=== PATIENT | female | born 1965 | race African-American/Black ===

== ENCOUNTER 2018-01-30 19:27 | Emergency (ER) | payer OTHER ==
[~2018-01-30] VITALS: Ht 162.6 cm; Wt 90.7 kg
[~2018-01-30 19:27] MED LIST: COR3 PO; CYMBALTA30 M1 PO; GEODON60 MG PO; MOM PO; MP PO; PROVENTIL0.09 MG/A1 INH; SIMVASTATIN40 M1 PO; TOPAMAX25 MG PO; TRAMADOL50 M1 PO
[2018-01-30 19:35] VITALS: Ht 162.6 cm; Wt 90.7 kg
[2018-01-30 20:29] LABS: BASOPHIL % 0.8 % (0-2); PLATELET COUNT 262 x10^3mcL (130-400)
[2018-01-30 20:31] LABS: RED CELL DISTRIBUTION WIDTH 15.6 % (11.5-14.5)
[2018-01-30 20:43] LABS: CALCIUM 8.9 mg/dL (8.5-10.1); CHLORIDE SERUM 106 mmol/L (98-107); CREATININE SERUM 0.9 mg/dL (0.6-1.0); GFR1 > 60 mL/min; GLUCOSE SERUM 90 mg/dL (74-106); SODIUM SERUM 143 mmol/L (136-145)
[2018-01-30 20:48] LABS: ALKALINE PHOSPHATASE 51 U/L (46-116); ALT/SGPT 24 U/L (14-59); AST/SGOT 14 U/L (15-37); BILIRUBIN TOTAL 0.1 mg/dL (0.20-1.00); TOTAL PROTEIN, SERUM 6.8 g/dL (6.4-8.2)
[2018-01-30 20:49] LABS: ALBUMIN 3.1 g/dL (3.4-5.0)
[2018-01-31 02:05] VITALS: BP 141/78
== END 2018-01-31 02:05 | disposition home or self-care (01) ==
LOC: ED 19:27
PROVIDERS: Emergency Medicine
DX: R07.89 Other chest pain (principal); R05 Cough; R09.89 Other specified symptoms and signs involving the circulatory and respiratory systems; R11.0 Nausea; J45.909 Unspecified asthma, uncomplicated; Z88.6 Allergy status to analgesic agent; Z88.5 Allergy status to narcotic agent; Z86.73 Personal history of transient ischemic attack (TIA), and cerebral infarction without residual deficits
CPT/HCPCS: 83880; 85378; J2270; J2405; Q0092

== ENCOUNTER 2020-02-02 21:02 | Inpatient (IN) | payer OTHER ==
[~2020-02-02] VITALS: Ht 160 cm; Wt 84.8 kg
[2020-02-02 21:37] VITALS: Ht 160 cm; Wt 84.8 kg
--- NOTE | 2020-02-02 21:50 | NUR ---
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 DENIES SOB/FEVER/OR SICK CONTACT, VSS,NAD, APPPEARS DEPRESSED, DENIES SI/HI/VH/AH AT THIS TIME, PT ON TELE MONITOR, EKG DONE. PT ON TELE MONITOR, PEDING EDMD MSE, CONTINUE TO MONITOR
[2020-02-02 21:52] LABS: BASOPHIL % 1.2 % (0-2); PLATELET COUNT 260 x10^3mcL (130-400)
[2020-02-02 21:53] LABS: RED CELL DISTRIBUTION WIDTH 14.9 % (11.5-14.5)
[2020-02-02 22:03] LABS: CALCIUM 8.8 mg/dL (8.5-10.1); CARBON DIOXIDE 29.9 mmol/L (21-32); CHLORIDE SERUM 103 mmol/L (98-107); CREATININE SERUM 0.9 mg/dL (0.6-1.0); GFR1 > 60 mL/min; GLUCOSE SERUM 104 mg/dL (74-106); POTASSIUM SERUM 4.3 mmol/L (3.5-5.1); SODIUM SERUM 140 mmol/L (136-145)
[2020-02-02 22:08] LABS: ALBUMIN 3.7 g/dL (3.4-5.0); ALKALINE PHOSPHATASE 63 U/L (46-116); ALT/SGPT 33 U/L (14-59); AST/SGOT 20 U/L (15-37); BILIRUBIN TOTAL 0.2 mg/dL (0.20-1.00); TOTAL PROTEIN, SERUM 7.3 g/dL (6.4-8.2)
--- NOTE | 2020-02-02 23:30 | NUR ---
EDUCATE PT ON MED, VERBALIZES UNDERSTANDING, ZOFRAN 4MG AND MORPHINE 2MG IVP GIVEN, PT ON TELE MONITOT
[2020-02-03] VITALS (8 sets, daily range): BP systolic 113–140; BP diastolic 52–78
--- NOTE | 2020-02-03 | NUR ---
PT AMBULATES WITH STEADY GAIT TO AND FROM BATHROOM. NAD. DENIES SOB/CP AT THIS TIME
--- NOTE | 2020-02-03 01:27 | NUR ---
REPORT CALLED TO LEROY PETERSON TO ASSUME PRIMARY CARE OF RN.
--- NOTE | 2020-02-03 02:36 | NUR ---
PATIENT RECEIVED FROM ED VIA GURNEY TO ROOM 242B, PATIENT A&OX4, C/O HEADACHE AND PAIN IN THE NECK 11/14, OFFERED NORCO HOWEVER PATIENT SAID SHE IS ALLERGIC TO TYLENOL AND NSAIDS. ASK PATIENT WHAT MEDICATION WORKS FOR HER, HESITANT TO SAY, ASKS IF MORPHINE WORKS SHE HAD ONE IN ED AND SHE SAID YES. LEFT NOTE TO PROCESS VALIDATION ENGINEER MD FOR PAIN MEDICATION REQUEST. PATIENT AMBULATORY, ON TELE MONITOR # 36 SR WITH BBB AT 80. SKIN INTACT. SAFETY PRECAUTION EXPLAINED TO PATIENT. BED ALARM TURNED ON AND PATIENT REMINDED TO CALL PRIOR TO GETTING OUT OF BED. PATIENT VERBALIZED UNDERSTANDING. ASKED PATIENT WHY SHE IS IN [facility] PATIENT SAID "DEPRESSION". PATIENT ANSWERED QUESTIONS APPRORIATELY .NOTICE PATIENT DOING THE "HANDWASHING ACT" ON HER BEDSHEET THEN STOPS WHEN NURSE ENTERS ROOM. LEFT PATIENT IN BED, BED IN LOW POSITION, BED ALARM ON. REMINDED TO CALL BEFORE GETTING OUT OF BED.
[2020-02-03 07:19] LABS: BASOPHIL % 1.2 % (0-2); PLATELET COUNT 222 x10^3mcL (130-400)
[2020-02-03 07:22] LABS: RED CELL DISTRIBUTION WIDTH 15.2 % (11.5-14.5)
[2020-02-03 07:43] LABS: CALCIUM 9.3 mg/dL (8.5-10.1); CARBON DIOXIDE 28.5 mmol/L (21-32); CHLORIDE SERUM 105 mmol/L (98-107); CREATININE SERUM 0.9 mg/dL (0.6-1.0); GFR1 > 60 mL/min; GLUCOSE SERUM 94 mg/dL (74-106); POTASSIUM SERUM 4.1 mmol/L (3.5-5.1); SODIUM SERUM 142 mmol/L (136-145)
--- NOTE | 2020-02-03 12:53 | NUR ---
PT SITTING UP IN BED AND EATING, STATED THAT SHE STILL HAS A HEADACHE, BUT DID NOT WANT ANY MEDICATIONS AT THIS TIME. NO ACUTE DISTRESS OR CP AND PRESSURE NOTED. WILL CONT TO MONITOR. CALL LIGHT WITHIN REACH. BED IN LOWEST POSTIION.
--- NOTE | 2020-02-03 15:10 | NUR ---
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 EVEN AFTER REINFORCING THE IMPORTANCE, PT STATED "I DON'T NEED IT". WILL CONT TO MONITOR.
--- NOTE | 2020-02-03 15:11 | NUR ---
PATIENT REFUSED ECHOCARDIOGRAM-STATES SHE DOES NOT NEED IT
--- NOTE | 2020-02-03 15:21 | NUR ---
DR. GARCIA AT BEDSIDE PERFORMING INITIAL ASSESSMENT, PT INITIALLY ANSWERED QUESTIONS SUCH TAKING LATUDA AT [facility] AND NOT BEEN HAVING SI LATELY, BUT FURTHER ON REFUSED TO ANSWER DR'S QUESTIONS. PT STATED "I FEEL LIKE IT'S TOO INVASIVE". WILL CONT TO MONITOR PT AND FOLLOW UP WITH DR IF NEEDED.
--- NOTE | 2020-02-03 15:37 | NUR ---
WENT IN THE PTS ROOM AND STATED SHE WANTED TO LEAVE AMA, SPOKE WITH DR. HARLEY ON THE TELEPHONE, STATED THAT HE WILL SEE THE PT.
--- NOTE | 2020-02-03 15:45 | NUR ---
DR. HARLEY AT BEDSIDE, EXPLAINED THE REPERCUSSIONS OF LEAVING AMA. PT STILL INSISTED THAT SHE WOULD LIKE TO LEAVE AMA. PT SIGNED AMA FORM.
--- NOTE | 2020-02-03 18:29 | NUR ---
PT CURRENTLY SITTING UP AND EATING DINNER. AAOX4, PT APPEARED TENSE AND UPSET INTERMITTENTLY THROUGHOUT SHIFT. ON TELE 36, SR WITH BBB. NO CP AND PRESSURE NOTED AT THIS TIME. PULSES +, - EDEMA. ON RA, DENIES SOB. NO ABD PAIN/N/V AT THIS TIME. PT VOIDS FREELY. AMBULATORY WITH STEADY GAIT. SKIN INTACT. SALINE LOCKED 22G LH, PATENT AND FLUSHING. DENIES PAIN AT THIS TIME. WILL ENDORSE TO BURLING AND JOINING SUPERVISOR RN.
--- NOTE | 2020-02-03 19:34 | NUR ---
Receieve pt. from day shift for continuity of care at this time. Pt. is a/o x4, able to make needs known, follow simple commands, no c/o h/a. Pt. is breathing e/u on RA, no acute distress or SOB. Pt. reported to be NSR w/ BBB, trop negative x3, pt has no c/o pain or c/p at this time, will cont. to monitor. Pt. IV site patent and dressing in tact, no s/o infiltration or infection. Pt. noted to have refused eecho today, will try again in the AM, pt. is BRP, pt. came from [facility], noted to be tense and anxious, signed AMA during day shift, but willing to stay at this time since transportation can not be arranged. Otherwise, pt. stable, bed set at lowest position, call light placed within reach, will cont. to monitor.
--- NOTE | 2020-02-03 21:49 | NUR ---
Spoke to pt. at this time, pt. denies any hx of HIV or TB. States she got tested at [facility], and it was negative. Will cont. to monitor.
--- NOTE | 2020-02-03 21:59 | NUR ---
f/u w/ pt. regarding reported hx. of TB and HIV, as per pt. no hx of TB, and has been tested at [facility] for HIV, will cont. to monitor.
--- NOTE | 2020-02-03 23:28 | NUR ---
pt. resting in bed, watching tv throughout shift, all needs anticipated and met. All questions and concerns answered, otherwise, pt. stable, will cont. to monitor.
--- NOTE | 2020-02-04 00:46 | NUR ---
Pt. c/o of severe 9/10 h/a and neck pain and feeling nauseated. Offered some sprite, but pt. requesting zofran at this time. Medicated w/ zofran and morphine at this time, will cont. to monitor.
[2020-02-04 05:49] VITALS: BP 118/60
--- NOTE | 2020-02-04 06:19 | NUR ---
Pt. resting thorughout shift, no acute distress or c/o pain s/p pain medication administered. Otherwise, pt. stable, will cont. to monitor and endorse care to next shift RN.
[2020-02-04 07:26] LABS: CALCIUM 9.2 mg/dL (8.5-10.1); CARBON DIOXIDE 26.5 mmol/L (21-32); CHLORIDE SERUM 105 mmol/L (98-107); CREATININE SERUM 0.9 mg/dL (0.6-1.0); GFR1 > 60 mL/min; GLUCOSE SERUM 97 mg/dL (74-106); POTASSIUM SERUM 4.2 mmol/L (3.5-5.1); SODIUM SERUM 140 mmol/L (136-145)
[2020-02-04 07:57] LABS: BASOPHIL % 1.4 % (0-2); PLATELET COUNT 223 x10^3mcL (130-400)
[2020-02-04 08:00] LABS: RED CELL DISTRIBUTION WIDTH 14.7 % (11.5-14.5)
[2020-02-04 08:25] VITALS: BP 128/69
--- NOTE | 2020-02-04 10:31 | NUR ---
RECIEVED PT IN A MEDICALLY STABLE CONDITION, HOWEVER SHE WAS AGITATED AND STATED THAT WHE "WANTS TO LEAVE" AND SHE WAS CURSING AT ME AND THE DESIGN COORDINATOR AND STUDEMT.I TOLD HER THAT THE COMMUNICATIONS MARKETING INTERN WANTS TO SEE THE RESULTS OF THE ORDERED ECHO BUT SHE REFUSED DESPITE TEACHING. SHE WAS ADAMANT THAT SHE WANTED TO LEAVE AND DID SO DESPITE MY ATTEMPS TO EDUCATE OR ON THE ASSOCIATED RISKS. SHE REFUSED TO SIGN AN AMA FORM AND JUST DECIDED TO LEAVE AND DID SO WHILE WEARING A HOSPITAL GOWN. I WAS ABLE TO REMOVE HER IV AND WRISTBANDS BUT SHE LEFT THE FLOOR AT 0918.
== END 2020-02-04 09:21 | disposition left against medical advice (07) | DRG 206 ==
LOC: ED 21:02 → DU 23:12
PROVIDERS: ADMIT Family Medicine; ATTEND Family Medicine
DX: M94.0 Chondrocostal junction syndrome [Tietze] (principal); Z20.828 Contact with and (suspected) exposure to other viral communicable diseases; J45.909 Unspecified asthma, uncomplicated; I25.2 Old myocardial infarction; I25.10 Atherosclerotic heart disease of native coronary artery without angina pectoris; Z60.2 Problems related to living alone; F31.9 Bipolar disorder, unspecified; Z53.29 Procedure and treatment not carried out because of patient's decision for other reasons; Z88.6 Allergy status to analgesic agent; Z88.5 Allergy status to narcotic agent; Z86.73 Personal history of transient ischemic attack (TIA), and cerebral infarction without residual deficits; Z82.49 Family history of ischemic heart disease and other diseases of the circulatory system; Z79.899 Other long term (current) drug therapy
CPT/HCPCS: G0378; J2270; J2405; J3535